=== PATIENT | female | born 1980 | race Caucasian/White ===

== ENCOUNTER 2018-09-05 02:59 | Emergency (ER) | payer MEDICAID ==
[~2018-09-05] VITALS: Ht 157.5 cm; Wt 61.4 kg
[2018-09-05 03:03] VITALS: Ht 157.5 cm; Wt 61.4 kg
[2018-09-05] MEDS ORDERED: ESTRACE1 MG PO (03:04)
[2018-09-05] MEDS ORDERED: ZOLOFT25 MG (03:05)
[2018-09-05] MEDS ORDERED: VALTREX500 MG PO (03:05)
[2018-09-05] MEDS ORDERED: RANITIDINE HCL150 M1 PO (03:06)
[2018-09-05] MEDS ORDERED: KEPPRA500 MG PO (03:06)
[2018-09-05] MEDS ORDERED: VISTARIL25 MG PO (03:07)
[2018-09-05] MEDS ORDERED: ZOFRAN4 MG PO (03:07)
[2018-09-05 04:02] VITALS: BP 105/72
== END 2018-09-05 04:02 | disposition home or self-care (01) ==
LOC: D.ER 02:59
DX: R40.0 Somnolence (principal)